=== PATIENT | female | born 1985 | race Caucasian/White ===

== ENCOUNTER 2016-06-03 12:17 | Emergency (ER) | payer OTHER ==
[~2016-06-03] VITALS: Ht 162.6 cm; Wt 95.3 kg
[2016-06-03 12:50] VITALS: BP 128/76; PULSE 95; RESP 18; TEMP 98.3; O2SAT 95
--- NOTE | 2016-06-03 14:25 | NUR ---
ER at bedside examining patient.
--- NOTE | 2016-06-03 14:25 | NUR ---
Patient to ER bed 03 to gown for evaluation. Side rails up.
[2016-06-03] MEDS ORDERED: KETOROLAC TROMETHAMINE 60 MG/2 ML VIAL IM ONE (14:30)
--- NOTE | 2016-06-03 14:33 | NUR ---
Pt brought in by friend in stable condition. Pt c/o of left knee pain 7/10 s/p re-injuring last night. Pt stated that she originally injured left knee 2 months. Pt has limited ROM of left knee. -sob -chest pain. No acute distress noted at this time, will continue to monitor
[2016-06-03 14:56] VITALS: BP 131/71; PULSE 91; RESP 19; TEMP 98.1; O2SAT 97
--- NOTE | 2016-06-03 14:56 | NUR ---
Patient given written and verbal discharge instructions and verbalizes understanding. ER MD discussed with patient the results and treatment provided. Given copies of tests performed in ER. Patient in stable condition. ID arm band removed. Rx of NORCO, MOTRIN given. Patient educated on pain management and to follow up with PMD. Pain Scale 0/10. Opportunity for questions provided and answered. WHEELED BY WHEELCHAIR TO CAR BY SERGEI.
== END 2016-06-03 14:56 | disposition home or self-care (01) ==
LOC: SED 12:17
DX: S83.92XA Sprain of unspecified site of left knee, initial encounter (principal); X58.XXXA Exposure to other specified factors, initial encounter; Y93.41 Activity, dancing; Y99.8 Other external cause status; Y92.89 Other specified places as the place of occurrence of the external cause
CPT/HCPCS: 73564; 96372; 99284; J1885

== ENCOUNTER 2016-06-04 10:52 | Emergency (ER) | payer OTHER ==
[~2016-06-04] VITALS: Ht 162.6 cm; Wt 95.3 kg
[2016-06-04 11:10] VITALS: BP 128/80; PULSE 65; RESP 16; TEMP 97; O2SAT 99
--- NOTE | 2016-06-04 11:25 | NUR ---
Patient to ER bed 5 to gown for evaluation. Side rails up. Report given to Court ALLEN.
--- NOTE | 2016-06-04 11:26 | NUR ---
Dr Mckeon at bedside examining patient
--- NOTE | 2016-06-04 11:27 | NUR ---
Pt brought by self, A&Ox4, pt c/o L knee pain 11/07, pt recently seen here but symptoms not improving with rest and ice, VSS, pt requesting referral to ortho.
[2016-06-04 11:42] VITALS: BP 128/80; PULSE 65; RESP 16; TEMP 97; O2SAT 99
--- NOTE | 2016-06-04 11:44 | NUR ---
Patient given written and verbal discharge instructions and verbalizes understanding. ER MD discussed with patient the results and treatment provided.. Patient in stable condition. ID arm band removed. Rx of given. Patient educated on pain management and to follow up with PMD. Pain Scale 3/10 tolerable for pt . Opportunity for questions provided and answered.
== END 2016-06-04 11:42 | disposition home or self-care (01) ==
LOC: SED 10:52
DX: S83.92XA Sprain of unspecified site of left knee, initial encounter (principal); X58.XXXA Exposure to other specified factors, initial encounter; Y93.41 Activity, dancing; Y92.89 Other specified places as the place of occurrence of the external cause; Y99.8 Other external cause status
CPT/HCPCS: 99283

== ENCOUNTER 2016-10-22 12:34 | Emergency (ER) | payer OTHER ==
[~2016-10-22] VITALS: Ht 162.6 cm; Wt 86.2 kg
[2016-10-22 12:44] VITALS: BP_SYST 118
[2016-10-22 13:09] LABS: BILIRUBIN,URINE NEGATIVE (NEGATIVE); BLOOD, URINE NEGATIVE (NEGATIVE); CLARITY/URINE CLEAR (CLEAR); COLOR,URINE YELLOW (YELLOW); GLUCOSE,URINE NEGATIVE (NEGATIVE); KETONES,URINE NEGATIVE (NEGATIVE); LEUKOCYTE ESTERASE ,URINE NEGATIVE (NEGATIVE); NITRITE, URINE NEGATIVE (NEGATIVE); PROTEIN URINE NEGATIVE (NEGATIVE); UROBILINOGEN,URINE 0.2 (0.2-1.0)
[2016-10-22 13:17] LABS: BASOPHILS # (AUTO) 0.1 K/uL (0.0-0.2); BASOPHILS % (AUTO) 0.6 % (0.0-2.0); EOSINOPHILS # (AUTO) 0.2 K/uL (0.0-0.4); EOSINOPHILS % (AUTO) 2.3 % (0.0-4.0); HEMATOCRIT 47.2 % (36-48); HEMOGLOBIN 15.6 g/dL (12.0-16.0); LYMPHOCYTES # (AUTO) 1.6 K/uL (1.0-5.5); LYMPHOCYTES % (AUTO) 18.9 % (20.5-51.5); MEAN CORPUSCULAR HEMOGLOBIN 30 pg (27-31); MEAN CORPUSCULAR HGB CONC 33 % (32-36); MEAN CORPUSCULAR VOLUME 91 fL (79.0-98.0); MONOCYTES # (AUTO) 0.8 K/uL (0.0-1.0); MONOCYTES % (AUTO) 9.2 % (1.7-9.3); NEUTROPHILS # (AUTO) 5.9 K/uL (1.8-7.7); PLATELET COUNT (AUTO) 287 K/uL (130-430); RED BLOOD CELL COUNT(AUTO) 5.16 MIL/uL (4.2-6.2); RED CELL DISTRIBUTION WIDTH 12.1 % (9.0-15.0); WHITE BLOOD COUNT (AUTO) 8.6 K/uL (4.8-10.8)
[2016-10-22 13:30] LABS: CALCIUM 8.4 mg/dL (8.4-11.0); CREATININE 0.85 mg/dL (0.55-1.30); POTASSIUM 3.6 mmol/L (3.5-5.1)
[2016-10-22 13:36] LABS: ALBUMIN 3.4 g/dL (3.4-4.8); TOTAL BILIRUBIN 0.3 mg/dL (0.0-1.0); TOTAL PROTEIN, SERUM 7.5 g/dL (6.4-8.3)
[2016-10-22] MEDS ORDERED: ONDANSETRON HCL 4 MG/2 ML VIAL IVP ONE (14:30)
[2016-10-22] MEDS ORDERED: NACL 0.9% 1,000 ML IV ONE (14:30)
[2016-10-22] MEDS ORDERED: DIPHENOXYLATE HCL/ATROP SULF 2.5 MG TAB PO ONE (14:30)
[2016-10-22 16:55] VITALS: BP_SYST 120
== END 2016-10-22 16:55 | disposition home or self-care (01) ==
LOC: SED 12:34
DX: K52.9 Noninfective gastroenteritis and colitis, unspecified (principal); E86.0 Dehydration
CPT/HCPCS: 36415; 80053; 81003; 83690; 85025; 96361; 96374; 99284; J2405; J7030

== ENCOUNTER 2017-01-15 10:02 | Emergency (ER) | payer OTHER ==
[~2017-01-15] VITALS: Ht 162.6 cm; Wt 81.6 kg
[2017-01-15 10:02] VITALS: BP_SYST 137
[2017-01-15 10:51] LABS: BASOPHILS # (AUTO) 0.1 K/uL (0.0-0.2); BASOPHILS % (AUTO) 0.8 % (0.0-2.0); EOSINOPHILS # (AUTO) 0.4 K/uL (0.0-0.4); EOSINOPHILS % (AUTO) 4.2 % (0.0-4.0); HEMATOCRIT 36.3 % (36-48); HEMOGLOBIN 12.3 g/dL (12.0-16.0); LYMPHOCYTES % (AUTO) 23.1 % (20.5-51.5); MEAN CORPUSCULAR HEMOGLOBIN 31 pg (27-31); MEAN CORPUSCULAR HGB CONC 34 % (32-36); MEAN CORPUSCULAR VOLUME 92 fL (79.0-98.0); MONOCYTES # (AUTO) 0.6 K/uL (0.0-1.0); MONOCYTES % (AUTO) 7.1 % (1.7-9.3); NEUTROPHILS # (AUTO) 5.6 K/uL (1.8-7.7); NEUTROPHILS % (AUTO) 64.8 % (40.0-70.0); PLATELET COUNT (AUTO) 249 K/uL (130-430); RED BLOOD CELL COUNT(AUTO) 3.97 MIL/uL (4.2-6.2); RED CELL DISTRIBUTION WIDTH 12.9 % (9.0-15.0); WHITE BLOOD COUNT (AUTO) 8.7 K/uL (4.8-10.8)
[2017-01-15 11:05] LABS: CALCIUM 9.1 mg/dL (8.4-11.0); CREATININE 0.71 mg/dL (0.55-1.30); POTASSIUM 4.2 mmol/L (3.5-5.1)
[2017-01-15 11:09] LABS: PROTHROMBIN TIME 9.7 SECS (9.5-12.5)
[2017-01-15 11:11] LABS: ALBUMIN 3.3 g/dL (3.4-4.8); TOTAL BILIRUBIN 0.3 mg/dL (0.0-1.0)
[2017-01-15] MEDS: KETOROLAC TROMETHAMINE 30 MG VIAL IVP ONE (11:28)
[2017-01-15] MEDS: ONDANSETRON HCL 4 MG/2 ML VIAL IVP ONE (11:29)
[2017-01-15 11:44] LABS: BILIRUBIN,URINE NEGATIVE (NEGATIVE); BLOOD, URINE NEGATIVE (NEGATIVE); CLARITY/URINE CLEAR (CLEAR); COLOR,URINE YELLOW (YELLOW); GLUCOSE,URINE NEGATIVE (NEGATIVE); KETONES,URINE NEGATIVE (NEGATIVE); LEUKOCYTE ESTERASE ,URINE NEGATIVE (NEGATIVE); NITRITE, URINE NEGATIVE (NEGATIVE); PROTEIN URINE NEGATIVE (NEGATIVE); UROBILINOGEN,URINE 0.2 (0.2-1.0)
[2017-01-15 14:12] VITALS: BP_SYST 126
[2017-01-16 08:06] LABS: HEPATITIS A AB, IgM Negative (Negative); HEPATITIS B CORE AB, IgM Negative (Negative); HEPATITIS B SURFACE AG Negative (Negative)
== END 2017-01-15 14:12 | disposition home or self-care (01) ==
LOC: SED 10:02
DX: N83.202 Unspecified ovarian cyst, left side (principal)
CPT/HCPCS: 36415; 76830; 76857; 80053; 80074; 81003; 81025; 83690; 85025; 85610; 85730; 96374; 96375; 99285; J1885; J2405